=== PATIENT | male | born 1975 | race Caucasian/White ===

== ENCOUNTER 2023-11-17 06:38 | Outpatient (OUT) | payer OTHER, SELFPAY ==
[2023-11-17 06:54] LABS: Basophils Percent Auto 0.6 % (0.2-2.0); Eosinophils Absolute Auto 0.2 10^3/uL (0.0-0.7); Eosinophils Percent Auto 3.6 % (0.9-7.0); Hematocrit 46.6 % (42.0-54.0); Immature Granulocytes Abs Auto 0.02 10^3/uL (0.00-0.03); Immature Granulocytes Pct Auto 0.4 % (0.0-0.5); Lymphocytes Absolute Auto 1.5 10^3/uL (1.2-3.8); Lymphocytes Percent Auto 27.8 % (20.5-60.0); Mean Corpuscular HGB Conc 34.3 g/dL (29.9-35.2); Mean Corpuscular Hemoglobin 31.6 pg (25.9-34.0); Mean Corpuscular Volume 91.9 fL (80.0-94.0); Mean Platelet Volume 10.3 fL (9.5-13.5); Monocytes Absolute Auto 0.7 10^3/uL (0.3-0.8); Monocytes Percent Auto 13.7 % (1.7-12.0); Neutrophils Absolute Auto 2.8 10^3/uL (1.4-6.5); Neutrophils Percent Auto 53.9 % (43.0-75.0); Platelet Count 226 10^3/uL (150-450); Red Blood Count 5.07 10^6/uL (4.70-6.10); Red Cell Distribution Width 11.8 % (11.0-15.0); White Blood Count 5.3 10^3/uL (4.0-11.0)
[2023-11-17 07:13] LABS: Alanine Aminotransferase 35 U/L (16-63); Albumin Globulin Ratio 1.2; Albumin Level 3.9 g/dL (3.4-5.0); Alkaline Phosphatase 71 U/L (46-116); Aspartate Amino Transferase 24 U/L (15-37); Bilirubin Total 1.1 mg/dL (0.2-1.0); Carbon Dioxide 28.4 mmol/L (21.0-32.0); Chloride 103 mmol/L (98-107); Chol HDL Ratio 4.6; Cholesterol 235 mg/dL (<=200); Estimated GFR (African America >60 (>=60); Estimated GFR (Non-African Ame >60 (>=60); Globulin 3.3 g/dL; Glucose 105 mg/dL (74-106); HDL Cholesterol 51 mg/dL (40-60); Potassium 4.4 mmol/L (3.5-5.1); Sodium 139 mmol/L (136-145); Total Protein 7.2 g/dL (6.4-8.2); Triglycerides 100 mg/dL (<=150)
[2023-11-17 07:25] LABS: Prostate Specific Antigen Scrn 0.95 ng/mL (<=4.00)
== END 2023-11-17 06:39 | disposition home or self-care (01) ==
LOC: LAB 06:41
PROVIDERS: PCP Internal Medicine; Visit Provider Internal Medicine
DX: Z00.00 Encounter for general adult medical examination without abnormal findings (principal); E78.5 Hyperlipidemia, unspecified; R53.83 Other fatigue; Z12.5 Encounter for screening for malignant neoplasm of prostate
CPT/HCPCS: 36415; 80053; 80061; 85025; G0103

== ENCOUNTER 2024-02-12 06:55 | Outpatient (OUT) | payer OTHER, SELFPAY ==
--- OUTSIDE RECORDS SUMMARY | 2024-02-12 06:58 | XMS_ITS | CCD ---
Author Organization [facility] Care Team Providers Care Databases Computer Consultant Name Role Phone JAISON CANTOR Admitting Unavailable JAISON CANTOR Attending Unavailable DO Jaison Cantor Primary Care Provider [phone] MD Jonathon Redd Attending Provider Jonathon Redd Attending Unavailable Jonathon Redd Admitting Unavailable Jaison Cantor Primary Care Unavailable Medications Current Medications Medication Drug Class(es) Dates Sig (Normalized) Sig (Original) omeprazole 40 mg delayed release oral capsule (1 source) Proton Pump Inhibitor Start: 01-07-2024 take 40 mg by mouth once daily Omeprazole Active 40 MG PO Daily January 07, 2024 12:00am Problems Problem Classification Problem Date Documented Date Episodic/Chronic Abdominal pain (1 source) Epigastric pain; Translations: [Epigastric pain] 12-11-2023 Episodic Esophageal disorders (4 sources) Gastroesophageal reflux disease; Translations: [Gastro-esophageal reflux disease without esophagitis] 11-12-2023 Chronic Other nutritional; endocrine; and metabolic disorders (2 sources) Obesity; Translations: [Obesity, unspecified] 11-14-2023 Chronic Other nutritional; endocrine; and metabolic disorders (1 source) Obesity, unspecified; Translations: [Obesity, unspecified] 11-14-2023 Chronic Other screening for suspected conditions (not mental disorders or infectious disease) (3 sources) Encounter for screening for malignant neoplasm of colon; Translations: [Special screening for malignant neoplasms of colon] Onset: 01-07-2024 11-14-2023 Episodic Residual codes; unclassified (1 source) Family history of malignant neoplasm of pancreas; Translations: [Family history of malignant neoplasm of digestive organs] 12-11-2023 Episodic Substance-related disorders (3 sources) Nicotine dependence; Translations: [Nicotine dependence, unspecified, uncomplicated] 11-14-2023 Chronic Results Test Name Value Interpretation Reference Range Facil ity Pathology Request for Lab Co rpon 01-07-2024 Pathology Request for Lab Dorian Normal [facility] Comment on above: Order Comment: PATHO LOGY GI SPECIMEN Result Comment: See report. Scanned copy available in EMR. PERFORMED BY: [place] [id number] PATHOLOGIST SEWER INSPECTOR KARINE MCCLOUD M.D. Performed By: #### P ATH TO [facility] #### [address] Basophils Auto (Bld) [#/Vol] on 11-17-2023 Basophils (Bld) [#/Vol] 0.0 10 3/uL 0.0-0.1 [facility] Basophils/100 WBC Auto (Bld) on 11-17-2023 Basophils/100 WBC (Bld) 0.6 % 0.2-2.0 [facility] Cholesterol in LDL Calc [Mas s/Vol]on 11-17-2023 Cholesterol in LDL [Mass/Vol] 164.0 mg/dL [facility] Comment on above: <100 mg/dl [id number] 0-129 mg/dl NEAR OR ABOVE [id number] mg/dl BORDERLINE [id number] mg/dl HIGH>190 mg/dl VERY HIGH Cholesterol in VLDL Calc [Ma ss/Vol]on 11-17-2023 Cholesterol in VLDL [Mass/Vol] 20.0 mg/dL [facility] Eosinophils/100 WBC Auto (Bl d)on 11-17-2023 Eosinophils/100 WBC (Bld) 3.6 % 0.9-7.0 [facility] Erythrocyte distribution wid th Auto (RBC) [Ratio]on 11-17-2023 Erythrocyte distribution width (RBC) [Ratio] 11.8 % 11.0-15.0 [facility] Estimated glomerular filtrat ion rate (GFR) non- Americanon 11-17-2023 GFR/1.73 sq M.predicted among non-blacks MDRD (S/P/Bld) [Vol rate/Area] mL/min/{1.73_m2} >=60 [facility] Globulin Calc (S) [Mass/Vol] on 08-10-2024 Globulin (S) [Mass/Vol] 3.3 g/dL [facility] Hematocrit Auto (Bld) [Volum e fraction]on 11-17-2023 Hematocrit (Bld) [Volume fraction] 46.6 % 42.0-54.0 [facility] Hemoglobin [Mass/volume] in Bloodon 11-17-2023 Hemoglobin (Bld) [Mass/Vol] 16.0 g/dL 14.0-18.0 [facility] Laboratory - Chemistry and C hemistry - challengeon 11-17-2023 Albumin [Mass/Vol] 3.9 g/dL 3.4-5.0 [facility] ALP [Catalytic activity/Vol] 71 U/L 46-116 [facility] ALT [Catalytic activity/Vol] 35 U/L 16-63 [facility] AST [Catalytic activity/Vol] 24 U/L 15-37 [facility] Bilirubin [Mass/Vol] 1.1 mg/dL High 0.2-1.0 [facility] Calcium [Mass/Vol] 9.0 mg/dL 8.5-10.1 [facility] Chloride [Moles/Vol] 103 mmol/L 98-107 [facility] Cholesterol [Mass/Vol] 235 mg/dL High <=200 [facility] Cholesterol in HDL [Mass/Vol] 51 mg/dL 40-60 [facility] Comment on above: > or =60 mg/dl - LOW CARDIOVASCULAR RISK<40 mg/dl - HIGH CARDIOVASCULAR RISK CO2 [Moles/Vol] 28.4 mmol/L 21.0-32.0 [facility] Creatinine [Mass/Vol] 0.95 mg/dL 0.70-1.30 [facility] GFR/1.73 sq M.predicted MDRD (S/P/Bld) [Vol rate/Area] mL/min/{1.73_m2} >=60 [facility] Glucose [Mass/Vol] 105 mg/dL 74-106 [facility] Potassium [Moles/Vol] 4.4 mmol/L 3.5-5.1 [facility] Protein [Mass/Vol] 7.2 g/dL 6.4-8.2 [facility] Sodium [Moles/Vol] 139 mmol/L 136-145 [facility] Triglyceride [Mass/Vol] 100 mg/dL <=150 [facility] Urea nitrogen [Mass/Vol] 19.0 mg/dL High 7.0-18.0 [facility] Urea nitrogen/Creatinine [Mass ratio] 20.0 mg/mg [facility] Laboratory - Hematology and Cell countson 11-17-2023 Immature granulocytes/100 WBC (Bld) 0.4 % 0.0-0.5 [facility] Leukocytes [#/volume] correc karen for nucleated erythrocytes in Blood by Automated counon 11-17-2023 WBC corrected for nucl RBC Auto (Bld) [#/Vol] 5.3 10 3/uL 4.0-11.0 [facility] Lymphocytes Auto (Bld) [#/Vo l]on 11-17-2023 Lymphocytes (Bld) [#/Vol] 1.5 10 3/uL 1.2-3.8 [facility] Lymphocytes/100 WBC Auto (Bl d)on 11-17-2023 Lymphocytes/100 WBC (Bld) 27.8 % 20.5-60.0 [facility] MCH Auto (RBC) [Entitic mass ]on 11-17-2023 MCH (RBC) [Entitic mass] 31.6 pg 25.9-34.0 [facility] MCHC Auto (RBC) [Mass/Vol]on 11-17-2023 MCHC (RBC) [Mass/Vol] 34.3 g/dL 29.9-35.2 [facility] MCV Auto (RBC) [Entitic vol] on 11-17-2023 MCV (RBC) [Entitic vol] 91.9 fL 80.0-94.0 [facility] Monocytes Auto (Bld) [#/Vol] on 11-17-2023 Monocytes (Bld) [#/Vol] 0.7 10 3/uL 0.3-0.8 [facility] Monocytes/100 WBC Auto (Bld) on 11-17-2023 Monocytes/100 WBC (Bld) 13.7 % High 1.7-12.0 [facility] Neutrophils Auto (Bld) [#/Vo l]on 11-17-2023 Neutrophils (Bld) [#/Vol] 2.8 10 3/uL 1.4-6.5 [facility] Neutrophils/100 WBC Auto (Bl d)on 11-17-2023 Neutrophils/100 WBC (Bld) 53.9 % 43.0-75.0 [facility] No Panel Informationon 11-16 Eosinophils # (Auto) 0.2 10 3/uL 0.0-0.7 [facility] Immature Granulocyte # (Auto) 0.02 10 3/uL 0.00-0.03 [facility] Prostate Specific Antigen Screen 0.95 ng/mL <=4.00 [facility] Platelet mean volume Auto (B ld) [Entitic vol]on 11-17-2023 Platelet mean volume (Bld) [Entitic vol] 10.3 fL 9.5-13.5 [facility] Platelets Auto (Bld) [#/Vol] on 11-17-2023 Platelets (Bld) [#/Vol] 226 10 3/uL 150-450 [facility] RBC Auto (Bld) [#/Vol]on RBC (Bld) [#/Vol] 5.07 10 6/uL 4.70-6.10 [facility] Serum or plasma albumin/glob ulin mass ratioon 11-17-2023 Albumin/Globulin [Mass ratio] 1.2 {ratio} [facility] Serum or plasma anion gap de terminationon 11-17-2023 Anion gap [Moles/Vol] 12.0 mmol[facility] Serum or plasma total choles terol/high density lipoprotein (HDL) cholesterol mass philip 11-17-2023 Cholesterol.total/Cho lesterol in HDL [Mass ratio] 4.6 {ratio} [facility] Comment on above: 3.3 - 4.4 LOW RISK4. 4 - 7.1 AVERAGE RISK7.1 - 11.0 MODERATE RISK>11.0 HIGH RISK Vital Signs Date Time Vital Sign Value Performing Clinician Santana eason 01-07-2024 11:44-0400 Diastolic blood pressure 87 mm[Hg] DO Jaison Cantor Work Phone: [facility] 01-07-2024 11:44-0400 Heart rate 63 /min DO Jaison Ball Work Phone: [facility] 01-07-2024 11:44-0400 Respiratory rate 16 /min DO Jaison Ball Work Phone: [facility] 01-07-2024 11:44-0400 SaO2% (BldA) [Mass fraction] 99 % DO Jaison Ball Work Phone: [facility] 01-07-2024 11:44-0400 Systolic blood pressure 127 mm[Hg] DO Jaison Ball Work Phone: [facility] 01-07-2024 10:41-0400 Body height 179.07 cm DO Jaison Ball Work Phone: [facility] 01-07-2024 10:41-0400 Body weight 114.3 kg DO Jaison Ball Work Phone: [facility] 11-14-2023 15:08-0400 Body height 179.07 cm [facility] 11-14-2023 15:08-0400 Body mass index (BMI) [Ratio] 35.8 kg/m2 [facility] 11-14-2023 15:08-0400 Body weight 114.92 kg [facility] 11-14-2023 15:08-0400 Diastolic blood pressure 80 mm[Hg] [facility] 11-14-2023 15:08-0400 Heart rate 74 /min [facility] 11-14-2023 15:08-0400 Respiratory rate 12 /min [facility] 11-14-2023 15:08-0400 Systolic blood pressure 127 mm[Hg] [facility] Encounters Encounter Date Encounter Type Care Provider Facility Start: 01-07-2024 Non-patient / Non-visit DO Jaison Ball Work Phone: [facility] Work Phone: Start: 01-07-2024 End: 01-07-2024 Admission to same day surgery center DO Jaison Ball Work Phone: [facility] Work Phone: Start: 01-07-2024 End: 01-07-2024 ambulatory DO Jaison Cantor Work Phone: [facility] Work Phone: Start: 11-17-2023 Non-patient / Non-visit DO Jaison Cantor Work Phone: [facility] Work Phone: Start: 11-14-2023 End: 11-14-[address] [facility] Work Phone: Start: 11-14-2023 End: 11-14-2023 Encounter for general adult medical examination without abnormal findings [facility] Start: 11-14-2023 End: 11-14-2023 Patient encounter procedure [facility] Work Phone: Start: 05-03-2020 Patient encounter procedure JAISON CANTOR Facility: Procedures Date Procedure Procedure Detail Performing Clinician Start: 01-07-2024 Esophagogastroduodenoscopy DO Jaison Cantor Work Phone: Plan of Treatment Date Care Activity Detail Author Start: 01-07-2024 [facility] Start: 11-14-2023 Patient referral [facility] Work Phone: Comprehensive metabo lic 2000 panel - Serum or Plasma [facility] Patient Education Colon polyps Esophagitis Know your Meds [facility] Work Phone: Patient referral [facility] Work Phone: [facility] Payers Date Payer Category Payer Self-pay 2023 Unknown [id number] 1975 Unknown [id number] Unknown [place] [employer] [id number] Unknown [id number] Social History Date Type Detail Facility Start: 11-14-2023 Tobacco smoking stat [facility] Never smoked tobacco (finding) [facility] Start: 1975 Sex Assigned At Male F [facility] Start: 01-07-2024 Tobacco smoking stat [facility] Ex-smoker (finding) [facility] Goals Date Patient Goal Desired Activity /State Procedure note 01-07-2024 Note Date & Type Note Facility 01-07-2024 Procedure note [facility] Evaluation note Note Date & Type Note Facility Evaluation note Diagnosis Onset Date GERD (gastroesophageal reflux disease) acute Screening for colon cancer n oneactive Wellness examination noneact [facility] Work Phone: Evaluation note Note Date & Type Note Facility Evaluation note Diagnosis Onset Date GERD (gastroesophageal reflux disease) acute Nicotine addiction acute Obesity acute Screening for colon cancer n oneactive Wellness examination noneact [facility] Work Phone: History and physical note Note Date & Type Note Facility History and physical note Note Date/Time January 07, 2024 10:52am [facility] [address] [place] [address] Gastroenterology H&P Signed Patient: Mendoza Pratt MR#: [id number] : 1975 Acct:[id number] Age/Sex: 48 / M Adm Date: 4 Loc: Room: Type: [facility] Attending Dr: Jonathon Redd MD Copies to: DO Jonathon Acosta MD~ Date of Service: 01/07/2024 HISTORY & PHYSICAL: Patient's history with special attention to the cardiovascular, pulmonary systems and the current problem was reviewed with the patient immediately prior to the procedure. Present medications and doses reviewed in the EMR. Allergies and pertinent laboratory tests were also reviewedat this time in the EMR. The physical examination, as below, was then performed. Indication, assessment and HPI: 48-year-old male presents for EGD to evaluate history of GERD, not on controller medication, colorectal cancer screening Family history of GI malignancy? no PHYSICAL EXAMINATION Mouth and Pharynx : moist mucus membranes, normal dentition Cardiac: regular rate, regular rhythm Pulmonary: normal respiratory effort, able to speak in complete sentences Neurological: alert and oriented x3, no focal deficits noted Abdomen: Abdomen soft, non-tender REVIEW OF SYSTEMS Constitutional: Denies malaise, fevers Cardiovascular: Denies chest pain, palpitations Respiratory: Denies shortness of breath, wheezing Gastrointestinal: Per HPI Genitourinary: Denies dysuria, polyuria Musculoskeletal: Denies joint swelling, joint stiffness Neurological: Denies numbness, tingling Integumentary: Denies rashes, skin lesions Endocrine: Denies fatigue, weight loss Written informed consent obtained from the patient. Risks (including but not limited to perforation, infection, bloating, bleeding, need for emergent surgeryand loss of life), benefits and alternatives explained and questions answered. The patient verbalized understanding. Based on history patient is an appropriate candidate for the procedure. Jonathon Redd MD Documented By: Jonathon Redd MD 01/07/24 105 Signed By: <Electronically signed by Jonathon Redd MD> 01/07/24 1051 [facility] Work Phone: Hospital Discharge instructions Note Date & Type Note Facility Hospital Discharge instructions Ambulatory OrdersReferral to Gastroenterology Location: None Selected [facility] Work Phone: Summary Purpose Family History No Family History Records Found Relationship Condition Age at Onset Recorded Date/T fawad mother Malignant neoplasm of pancreas Unknown father Heart disease Unknown Advance Directives No Advanced Directives Records Found Advance Directive Response Recorded Date/ Time Advance Directives No November 13, 2 024 3:00pm Chief Complaint and Reason for Visit Chief Complaint well Reason for Visit GERD (gastroesophage al reflux disease) Screening for colon cancer Wellness examination Chief Complaint well Screening, GERD, epigastric abdominal pain Screening, GERD, epigastric abdominal pain Reason for Visit GERD (gastroesophage al reflux disease) Nicotine addiction Obesity Screening for colon cancer Wellness examination Additional Source Comments (unrecognized sect ion and content) No Status Records FoundNo Status Records Found INFORMATION SOURCE (unrecogn ized section and content) DATE CREATED AUTHOR 05/03/2020 [facility] DATE CREATED AUTHOR 'S ORGANIZ ATION 01/18/2024 [facility] Care Teams (unrecognized sec tion and content) Team Status: Active Member Role Status Dates Jaison Cantor , DO Primary Care Provider Active Team Status: Inactive Member Role Status Dates Jaison Cantor , DO Primary Care Provide r, Attending Provider Active Start: November 14, 2023 End: November 14, 2023 Team Status: Active Member Role Status Dates aJison Cantor , DO Primary Care Provide r, Attending Provider Active Start: November 17, 2023 Team Status: Inactive Member Role Status Dates Jaison Cantor , DO Primary Care Provider Active Start: January 07, 2024 End: January 07, 2024 Jonathon Redd MD Attending Provider Active S tart: January 07, 2024 End: January 07, 2024 Team Status: Active Member Role Status Dates Jaison Cantor , DO Primary Care Provider Active Start: January 07, 2024 Jonathon Redd MD Attending Provider, Other Provider Active Start: January 07, 2024 Goals (unrecognized section and content) Goals may be documented in a n alternate section FOR RECORDS PERTAINING TO PATIENTS WHO ARE OR HAVE BEEN ENROLLED IN A CHEMICAL DEPENDENCY/SUBSTANCEABUSE PROGRAM, SOME INFORMATION MAY BE OMITTED. This clinical summary was aggregated from multiple sources. Caution should be exercised in using it in the provision of clinical care. This summary normalizes information from multiple sources, and as a consequence, information in this document may materially change the coding, format and clinical context of patient data. In addition, data may be omitted in some cases. CLINICAL DECISIONS SHOULD BE BASED ON THE PRIMARY CLINICAL RECORDS. [employer] provides no warranty or guarantee of the accuracy or completeness of information in this document.
--- NOTE | 2024-02-12 07:00 | US_ITS ---
The [address] [address] Patient Name: MARILYN PHELPS MRN: [id number] date: 1975 Sex: M Assigned Patient Location: US Current Patient Location: US Accession/Order Number: [id number] Exam Date: 02/12/2024 07:02 Report Date: 02/12/2024 09:12 At the request of: DIANNE CANTOR Procedure: US right upper quadrant EXAMINATION: US renal BI, US right upper quadrant HISTORY: right side abdominal pain COMPARISON: No relevant comparison available. TECHNIQUE: Ultrasound examination was performed of the bladder. FINDINGS: The visualized pancreas is normal The liver is normal in size and contour measuring 16.5 cm. Diffuse increase in hepatic echotexture. Hepatopedal flow in the main portal vein with a velocity of 21 cm/s. The gallbladder is surgically absent. The common bile duct measures 3.7 mm. The right kidney is normal in size, contour and echotexture measuring 10.6 x 7.0 x 6.9 cm. the cortex measures 1.3 cm. No solid mass or hydronephrosis The right kidney is normal in size, contour and echotexture measuring 11.9 x 6.4 x 5.8 cm. the cortex measures 1.0 cm. No solid mass or hydronephrosis No ascites US/US right upper quadrant IMPRESSION: Echogenic liver suggesting hepatic steatosis Normal appearance of kidneys Electronically authenticated by: ALLYN CAMPBELL Date: 02/12/2024 09:12
--- NOTE | 2024-02-12 07:00 | US_ITS ---
The [address] [address] Patient Name: MARILYN PHELPS MRN: [id number] date: 1975 Sex: M Assigned Patient Location: US Current Patient Location: US Accession/Order Number: [id number] Exam Date: 02/12/2024 07:02 Report Date: 02/12/2024 09:12 At the request of: DIANNE CANTOR Procedure: US renal BI EXAMINATION: US renal BI, US right upper quadrant HISTORY: right side abdominal pain COMPARISON: No relevant comparison available. TECHNIQUE: Ultrasound examination was performed of the bladder. FINDINGS: The visualized pancreas is normal The liver is normal in size and contour measuring 16.5 cm. Diffuse increase in hepatic echotexture. Hepatopedal flow in the main portal vein with a velocity of 21 cm/s. The gallbladder is surgically absent. The common bile duct measures 3.7 mm. The right kidney is normal in size, contour and echotexture measuring 10.6 x 7.0 x 6.9 cm. the cortex measures 1.3 cm. No solid mass or hydronephrosis The right kidney is normal in size, contour and echotexture measuring 11.9 x 6.4 x 5.8 cm. the cortex measures 1.0 cm. No solid mass or hydronephrosis No ascites US/US renal BI IMPRESSION: Echogenic liver suggesting hepatic steatosis Normal appearance of kidneys Electronically authenticated by: ALLYN CAMPBELL Date: 02/12/2024 09:12
== END 2024-02-12 06:56 | disposition home or self-care (01) ==
LOC: US 06:56
PROVIDERS: PCP Internal Medicine; Visit Provider Internal Medicine
DX: R10.9 Unspecified abdominal pain (principal); K20.90 Esophagitis, unspecified without bleeding; Z80.0 Family history of malignant neoplasm of digestive organs
CPT/HCPCS: 76705; 76775

== ENCOUNTER 2024-02-22 13:00 | Outpatient (RCR) | payer OTHER, SELFPAY ==
--- OUTSIDE RECORDS SUMMARY | 2024-02-21 08:08 | XMS_ITS | CCD ---
Author Organization [facility] Care Team Providers Care Automotive Instructor Name Role Phone JAISON CANTOR Admitting Unavailable JAISON CANTOR Attending Unavailable DO Jaison Cantor Primary Care Provider MD Jonathon Redd Attending Provider Jonathon Redd [...] Pathology Request for Lab Dorian Normal [facility] Comment on above: Order Comment: PATHO LOGY GI SPECIMEN Result Comment: See report. Scanned copy available in EMR. PERFORMED BY: [place] [address] PATHOLOGIST PROGRAM AIDE KARINE CMCLOUD M.D. Performed By: #### P ATH TO [facility] #### [address] Basophils Auto (Bld) [#/Vol] on 11-17-2023 Basophils (Bld) [#/Vol] 0.0 10 3/uL 0.0-0.[address] [facility] Basophils/100 WBC Auto (Bld) on 11-17-2023 Basophils/100 WBC (Bld) 0.6 % 0.2-2.[address] [facility] Cholesterol in LDL Calc [Mas s/Vol]on 11-17-2023 Cholesterol in LDL [Mass/Vol] 164.0 mg/dL [facility] Comment on above: <100 mg/dl [id number] 0-129 mg/dl NEAR OR ABOVE [id number] mg/dl BORDERLINE [id number] mg/dl HIGH>190 mg/dl VERY HIGH Cholesterol in VLDL Calc [Ma ss/Vol]on 11-17-2023 Cholesterol in VLDL [Mass/Vol] 20.0 mg/dL [facility] Eosinophils/100 WBC Auto (Bl d)on 11-17-2023 Eosinophils/100 WBC (Bld) 3.6 % 0.9-7.[address] [facility] Erythrocyte distribution wid th Auto (RBC) [Ratio]on 11-17-2023 Erythrocyte distribution width (RBC) [Ratio] 11.8 % 11.0-15.[address] [facility] Estimated glomerular filtrat ion rate (GFR) non- Americanon 11-17-2023 GFR/1.73 sq M.predicted among non-blacks MDRD (S/P/Bld) [Vol rate/Area] mL/min/{1.73_m2} >=[address] [facility] Globulin Calc (S) [Mass/Vol] on 08-10-2024 Globulin (S) [Mass/Vol] 3.3 g/dL [facility] Hematocrit Auto (Bld) [Volum e fraction]on 11-17-2023 Hematocrit (Bld) [Volume fraction] 46.6 % 42.0-54.[address] [facility] Hemoglobin [Mass/volume] in Bloodon 11-17-2023 Hemoglobin (Bld) [Mass/Vol] 16.0 g/dL 14.0-18.[address] [facility] Laboratory - Chemistry and C hemistry - challengeon 11-17-2023 Albumin [Mass/Vol] 3.9 g/dL 3.4-5.0 [facility] ALP [Catalytic activity/Vol] 71 U/L 46-[address] [facility] ALT [Catalytic activity/Vol] 35 U/L 16-[address] [facility] AST [Catalytic activity/Vol] 24 U/L 15-[address] [facility] Bilirubin [Mass/Vol] 1.1 mg/dL High 0.2-1.0 [facility] Calcium [Mass/Vol] 9.0 mg/dL 8.5-10.1 [facility] Chloride [Moles/Vol] 103 mmol/L 98-107 [facility] Cholesterol [Mass/Vol] 235 mg/dL High <=[address] [facility] Cholesterol in HDL [Mass/Vol] 51 mg/dL 40-[address] [facility] Comment on above: > or =60 mg/dl - LOW CARDIOVASCULAR RISK<40 mg/dl - HIGH CARDIOVASCULAR RISK CO2 [Moles/Vol] 28.4 mmol/L 21.0-32.0 [facility] Creatinine [Mass/Vol] 0.95 mg/dL 0.70-1.30 [facility] GFR/1.73 sq M.predicted MDRD (S/P/Bld) [Vol rate/Area] mL/min/{1.73_m2} >=[address] [facility] Glucose [Mass/Vol] 105 mg/dL 74-106 [facility] Potassium [Moles/Vol] 4.4 mmol/L 3.5-5.1 [facility] Protein [Mass/Vol] 7.2 g/dL 6.4-8.2 [facility] Sodium [Moles/Vol] 139 mmol/L 136-145 [facility] Triglyceride [Mass/Vol] 100 mg/dL <=[address] [facility] Urea nitrogen [Mass/Vol] 19.0 mg/dL High 7.0-18.[address] [facility] Urea nitrogen/Creatinine [Mass ratio] 20.0 mg/mg [facility] Laboratory - Hematology and Cell countson 11-17-2023 Immature granulocytes/100 WBC (Bld) 0.4 % 0.0-0.[address] [facility] Leukocytes [#/volume] correc karen for nucleated erythrocytes in Blood by Automated counon 11-17-2023 WBC corrected for nucl RBC Auto (Bld) [#/Vol] 5.3 10 3/uL 4.0-11.[address] [facility] Lymphocytes Auto (Bld) [#/Vo l]on 11-17-2023 Lymphocytes (Bld) [#/Vol] 1.5 10 3/uL 1.2-3.[address] [facility] Lymphocytes/100 WBC Auto (Bl d)on 11-17-2023 Lymphocytes/100 WBC (Bld) 27.8 % 20.5-60.[address] [facility] MCH Auto (RBC) [Entitic mass ]on 11-17-2023 MCH (RBC) [Entitic mass] 31.6 pg 25.9-34.[address] [facility] MCHC Auto (RBC) [Mass/Vol]on 11-17-2023 MCHC (RBC) [Mass/Vol] 34.3 g/dL 29.9-35.2 [facility] MCV Auto (RBC) [Entitic vol] on 11-17-2023 MCV (RBC) [Entitic vol] 91.9 fL 80.0-94.[address] [facility] Monocytes Auto (Bld) [#/Vol] on 11-17-2023 Monocytes (Bld) [#/Vol] 0.7 10 3/uL 0.3-0.[address] [facility] Monocytes/100 WBC Auto (Bld) on 11-17-2023 Monocytes/100 WBC (Bld) 13.7 % High 1.7-12.[address] [facility] Neutrophils Auto (Bld) [#/Vo l]on 11-17-2023 Neutrophils (Bld) [#/Vol] 2.8 10 3/uL 1.4-6.[address] [facility] Neutrophils/100 WBC Auto (Bl d)on 11-17-2023 Neutrophils/100 WBC (Bld) 53.9 % 43.0-75.[address] [facility] No Panel Informationon 11-16 Eosinophils # (Auto) 0.2 10 3/uL 0.0-0.7 [facility] Immature Granulocyte # (Auto) 0.02 10 3/uL 0.00-0.[address] [facility] Prostate Specific Antigen Screen 0.95 ng/mL <=4.[address] [facility] Platelet mean volume Auto (B ld) [Entitic vol]on 11-17-2023 Platelet mean volume (Bld) [Entitic vol] 10.3 fL 9.5-13.[address] [facility] Platelets Auto (Bld) [#/Vol] on 11-17-2023 Platelets (Bld) [#/Vol] 226 10 3/uL 150-[address] [facility] RBC Auto (Bld) [#/Vol]on RBC (Bld) [#/Vol] 5.07 10 6/uL 4.70-6.10 [facility] Serum or plasma albumin/glob ulin mass ratioon 11-17-2023 Albumin/Globulin [Mass ratio] 1.2 {ratio} [facility] Serum or plasma anion gap de terminationon 11-17-2023 Anion gap [Moles/Vol] 12.0 mmol[facility] Serum or plasma total choles terol/high density lipoprotein (HDL) cholesterol mass philip 11-17-2023 Cholesterol.total/Cho lesterol in HDL [Mass ratio] 4.6 {ratio} [facility] Comment on above: 3.3 - 4.4 LOW RISK4. 4 - 7.1 AVERAGE RISK7.1 - 11.0 MODERATE RISK>11.0 HIGH RISK Vital Signs Date Time Vital Sign Value Performing Clinician Santana eason 01-07-2024 11:44-0400 Diastolic blood pressure 87 mm[Hg] DO Jaison Cantor Work Phone: [facility] 01-07-2024 11:44-0400 Heart rate 63 /min DO Jaison Ball Work Phone: [facility] 01-07-2024 11:44-0400 Respiratory rate 16 /min DO Jaison Ball Work Phone: [facility] 01-07-2024 11:44-0400 SaO2% (BldA) [Mass fraction] 99 % DO Jaison Ball Work Phone: [facility] 01-07-2024 11:44-0400 Systolic blood pressure 127 mm[Hg] DO Jaison Ball Work Phone: [facility] 01-07-2024 10:41-0400 Body height 179.07 cm DO Jaison Ball Work Phone: [facility] 01-07-2024 10:41-0400 Body weight 114.3 kg DO Jaison Ball Work Phone: [facility] 11-14-2023 15:08-0400 Body height 179.07 cm [facility] 11-14-2023 15:08-0400 Body mass index (BMI) [Ratio] 35.8 kg/m2 [facility] 11-14-2023 15:08-0400 Body weight 114.92 kg [facility] 11-14-2023 15:08-0400 Diastolic blood pressure 80 mm[Hg] [facility] 11-14-2023 15:08-0400 Heart rate 74 /min [facility] 11-14-2023 15:08-0400 Respiratory rate 12 /min [facility] 11-14-2023 15:08-0400 Systolic blood pressure 127 mm[Hg] [facility] Encounters Encounter Date Encounter Type Care Provider Facility Start: 01-07-2024 Non-patient / Non-visit DO Jaison Ball Work Phone: [facility] Work Phone: Start: 01-07-2024 End: 01-07-2024 Admission to same day surgery center DO Jaison Ball Work Phone: [facility] Work Phone: Start: 01-07-2024 End: 01-07-2024 ambulatory DO Jaison Cantor Work Phone: [facility] Work Phone: Start: 11-17-2023 Non-patient / Non-visit DO Jaiosn Cantor Work Phone: [facility] Work Phone: Start: 11-14-2023 End: 11-14-2023 ambulatory [facility] Work Phone: Start: 11-14-2023 End: 11-14-2023 Encounter for general adult medical examination without abnormal findings [facility] Start: 11-14-2023 End: 11-14-2023 Patient encounter procedure [facility] Work Phone: Start: 05-03-2020 Patient encounter procedure JAISON CANTOR Facility: Procedures Date Procedure Procedure Detail Performing Clinician Start: 01-07-2024 Esophagogastroduodenoscopy DO Jaison Cantor Work Phone: Plan of Treatment Date Care Activity Detail Author Start: 01-07-[address] [facility] Start: 11-14-2023 Patient referral [facility] Work Phone: Comprehensive metabo lic 2000 panel - Serum or Plasma [facility] Patient Education Colon polyps Esophagitis Know your Meds [facility] Work Phone: Patient referral [facility] Work Phone: [facility] Payers Date Payer Category Payer Self-pay 2023 Unknown [id number] 1975 Unknown [id number] [place] [address] [facility] [id number] Unknown [id number] Social History Date Type Detail Facility Start: 11-14-2023 Tobacco smoking stat [facility] Never smoked tobacco (finding) [facility] Start: 1975 Sex Assigned At Male F [facility] Start: 01-07-2024 Tobacco smoking stat [facility] Ex-smoker (finding) [facility] Goals Date Patient Goal Desired Activity /State Procedure note 01-07-2024 Note Date & Type Note Facility 01-07-2024 Procedure note [facility] Evaluation note Note Date & Type Note Facility Evaluation note Diagnosis Onset Date GERD (gastroesophageal reflux disease) acute Screening for colon cancer n [facility]ness examination noneact [facility] Work Phone: Evaluation note Note Date & Type Note Facility Evaluation note Diagnosis Onset Date GERD (gastroesophageal reflux disease) acute Nicotine addiction acute Obesity acute Screening for colon cancer n [facility] Wellness examination noneact [facility] Work Phone: History and physical note Note Date & Type Note Facility History and physical note Note Date/Time January 07, 2024 10:52am [facility] [address] [place] [address] Gastroenterology H&P Signed Patient: Mendoza Pratt MR#: [id number] : 1975 Acct:[id number] Age/Sex: 48 / M Adm Date: 4 Loc: Room: Type: [facility] Attending Dr: Jonathon Redd MD Copies to: [...] 01/07/24 1051 [facility] Work Phone: Hospital Discharge instructions Note Date & Type Note Facility Hospital Discharge instructions Ambulatory OrdersReferral to Gastroenterology Location: None Selected [facility] Work Phone: Summary Purpose Family [...] CREATED AUTHOR 'S ORGANIZ ATION 01/18/2024 [facility] Care Teams (unrecognized sec tion and content) Team Status: Active Member Role Status Dates Jaison Cantor , DO Primary Care Provider Active Team Status: Inactive Member Role Status Dates Jaison Cantor , DO Primary Care Provide r, Attending Provider Active Start: November 14, 2023 End: November 14, 2023 Team Status: Active Member Role Status Dates Jaisno Cantor , DO Primary Care Provide r, [...] BE BASED ON THE PRIMARY CLINICAL RECORDS. [employer] provides no warranty or guarantee of the accuracy or completeness of information in this document.
--- NOTE | 2024-02-22 15:00 | PC.NURSE ---
1430 Arrival ambulatory for [facility] draw per nursing. venipuncture LACF, tolerated well. cotton ball and coban applied. educated on removing coban after 10 mins. verbalized understanding. lab draw packaged and sent to [facility]. 1440 released ambulatory
== END 2024-02-28 09:16 | disposition home or self-care (01) ==
LOC: HEMC 13:00
PROVIDERS: PCP Internal Medicine; Visit Provider Internal Medicine Hematology & Oncology
DX: K20.90 Esophagitis, unspecified without bleeding (principal); K76.0 Fatty (change of) liver, not elsewhere classified; Z90.49 Acquired absence of other specified parts of digestive tract; F10.90 Alcohol use, unspecified, uncomplicated; Z84.81 Family history of carrier of genetic disease; Z80.0 Family history of malignant neoplasm of digestive organs; F17.220 Nicotine dependence, chewing tobacco, uncomplicated
CPT/HCPCS: 36415; G0463

== ENCOUNTER 2024-03-25 07:37 | Outpatient (RCR) | payer OTHER, SELFPAY ==
--- OUTSIDE RECORDS SUMMARY | 2024-03-25 07:40 | XMS_ITS | CCD ---
Author Organization [facility] Care Team Providers Care Building Construction Engineer Name Role Phone JAISON CANTOR Admitting Unavailable JAISON CANTOR Attending Unavailable DO Jaison Cantor Primary Care Provider [phone] MD Jonathon Redd Attending Provider Jonathon Redd Attending Jaison Diaz Primary Care Unavailable Jonathon Redd Admitting Unavailable Jonathon Redd Attending Unavailable Jaison Cantor Primary Care Unavailable Jonathon Redd Admitting Unavailable Medications Current Medications Medication Drug Class(es) [...] Translations: [Epigastric pain] 12-11-2023 Episodic Esophageal disorders (5 sources) Gastroesophageal reflux disease; Translations: [Gastro-esophageal reflux disease without esophagitis] Onset: 03-11-2024 11-12-2023 Chronic Other nutritional; endocrine; and metabolic [...] Pathology Request for Lab Dorian Normal [facility] Comment on above: Order Comment: PATHO LOGY GI SPECIMEN Result Comment: See report. Scanned copy available in EMR. PERFORMED BY: [place] [address] PATHOLOGIST VOUCHER EXAMINER KARINE MCCLOUD M.D. Performed By: #### P ATH TO [facility] #### [address] Basophils Auto (Bld) [#/Vol] on 11-17-2023 Basophils (Bld) [#/Vol] 0.0 10 3/uL 0.0-0.1 [facility] Basophils/100 WBC Auto (Bld) on 11-17-2023 Basophils/100 WBC (Bld) 0.6 % 0.2-2.0 [facility] Cholesterol in LDL Calc [Mas s/Vol]on 11-17-2023 Cholesterol in LDL [Mass/Vol] 164.0 mg/dL [facility] Comment on above: <100 mg/dl NHOLFLC27 0-129 mg/dl NEAR OR ABOVE LKEITWJ241-143 mg/dl BORDERLINE ISXU057-179 mg/dl HIGH>190 mg/dl VERY HIGH Cholesterol in VLDL Calc [Ma ss/Vol]on 11-17-2023 Cholesterol in VLDL [Mass/Vol] 20.0 mg/dL [facility] Eosinophils/100 WBC Auto (Bl d)on 11-17-2023 Eosinophils/100 WBC (Bld) 3.6 % 0.9-7.0 [facility] Erythrocyte distribution wid th Auto (RBC) [Ratio]on 11-17-2023 Erythrocyte distribution width (RBC) [Ratio] 11.8 % 11.0-15.0 [facility] Estimated glomerular filtrat ion rate (GFR) non- Americanon 11-17-2023 GFR/1.73 sq M.predicted among non-blacks MDRD (S/P/Bld) [Vol rate/Area] mL/min/{1.73_m2} >=60 [facility] Globulin Calc (S) [Mass/Vol] on 11-17-2023 Globulin (S) [Mass/Vol] 3.3 g/dL [facility] Hematocrit Auto (Bld) [Volum e fraction]on 11-17-2023 Hematocrit (Bld) [Volume fraction] 46.6 % 42.0-54.0 [facility] Hemoglobin [Mass/volume] in Bloodon 11-17-2023 Hemoglobin (Bld) [Mass/Vol] 16.0 g/dL 14.0-18.0 [facility] Laboratory - Chemistry and C hemistry - challengeon 11-17-2023 Albumin [Mass/Vol] 3.9 g/dL 3.4-5.0 [facility] ALP [Catalytic activity/Vol] 71 U/L 46-116 [facility] ALT [Catalytic activity/Vol] 35 U/L 16-63 [facility] AST [Catalytic activity/Vol] 24 U/L 15-37 [facility] Bilirubin [Mass/Vol] 1.1 mg/dL High 0.2-1.0 [facility] Calcium [Mass/Vol] 9.0 mg/dL 8.5-10.1 [facility] Chloride [Moles/Vol] 103 mmol/L 98-107 [facility] Cholesterol [Mass/Vol] 235 mg/dL High <=200 [facility] Cholesterol in HDL [Mass/Vol] 51 mg/dL 40-60 [facility] Comment on above: > or =60 mg/dl - LOW CARDIOVASCULAR RISK<40 mg/dl - HIGH CARDIOVASCULAR RISK CO2 [Moles/Vol] 28.4 mmol/L 21.0-32.0 [facility] Creatinine [Mass/Vol] 0.95 mg/dL 0.70-1.30 [facility] GFR/1.73 sq M.predicted MDRD (S/P/Bld) [Vol rate/Area] mL/min/{1.73_m2} >=60 [facility] Glucose [Mass/Vol] 105 mg/dL 74-106 [facility] Potassium [Moles/Vol] 4.4 mmol/L 3.5-5.1 [facility] Protein [Mass/Vol] 7.2 g/dL 6.4-8.2 [facility] Sodium [Moles/Vol] 139 mmol/L 136-145 [facility] Triglyceride [Mass/Vol] 100 mg/dL <=150 [facility] Urea nitrogen [Mass/Vol] 19.0 mg/dL High 7.0-18.0 [facility] Urea nitrogen/Creatinine [Mass ratio] 20.0 mg/mg [facility] Laboratory - Hematology and Cell countson 11-17-2023 Immature granulocytes/100 WBC (Bld) 0.4 % 0.0-0.5 [facility] Leukocytes [#/volume] correc karen for nucleated erythrocytes in Blood by Automated counon 11-17-2023 WBC corrected for nucl RBC Auto (Bld) [#/Vol] 5.3 10 3/uL 4.0-11.0 [facility] Lymphocytes Auto (Bld) [#/Vo l]on 11-17-2023 Lymphocytes (Bld) [#/Vol] 1.5 10 3/uL 1.2-3.8 [facility] Lymphocytes/100 WBC Auto (Bl d)on 11-17-2023 Lymphocytes/100 WBC (Bld) 27.8 % 20.5-60.0 [facility] MCH Auto (RBC) [Entitic mass ]on 11-17-2023 MCH (RBC) [Entitic mass] 31.6 pg 25.9-34.0 [facility] MCHC Auto (RBC) [Mass/Vol]on 11-17-2023 MCHC (RBC) [Mass/Vol] 34.3 g/dL 29.9-35.2 [facility] MCV Auto (RBC) [Entitic vol] on 11-17-2023 MCV (RBC) [Entitic vol] 91.9 fL 80.0-94.0 [facility] Monocytes Auto (Bld) [#/Vol] on 11-17-2023 Monocytes (Bld) [#/Vol] 0.7 10 3/uL 0.3-0.8 [facility] Monocytes/100 WBC Auto (Bld) on 08-10-2024 Monocytes/100 WBC (Bld) 13.7 % High 1.7-12.0 [facility] Neutrophils Auto (Bld) [#/Vo l]on 11-17-2023 Neutrophils (Bld) [#/Vol] 2.8 10 3/uL 1.4-6.5 [facility] Neutrophils/100 WBC Auto (Bl d)on 11-17-2023 Neutrophils/100 WBC (Bld) 53.9 % 43.0-75.0 [facility] No Panel Informationon 11-16 Eosinophils # (Auto) 0.2 10 3/uL 0.0-0.7 [facility] Immature Granulocyte # (Auto) 0.02 10 3/uL 0.00-0.03 [facility] Prostate Specific Antigen Screen 0.95 ng/mL <=4.00 [facility] Platelet mean volume Auto (B ld) [Entitic vol]on 11-17-2023 Platelet mean volume (Bld) [Entitic vol] 10.3 fL 9.5-13.5 [facility] Platelets Auto (Bld) [#/Vol] on 11-17-2023 Platelets (Bld) [#/Vol] 226 10 3/uL 150-450 [facility] RBC Auto (Bld) [#/Vol]on RBC (Bld) [#/Vol] 5.07 10 6/uL 4.70-6.10 [facility] Serum or plasma albumin/glob ulin mass ratioon 11-17-2023 Albumin/Globulin [Mass ratio] 1.2 {ratio} [facility] Serum or plasma anion gap de terminationon 11-17-2023 Anion gap [Moles/Vol] 12.0 mmol/L [facility] Serum or plasma total choles terol/high density lipoprotein (HDL) cholesterol mass philip 11-17-2023 Cholesterol.total/Cho lesterol in HDL [Mass ratio] 4.6 {ratio} [facility] Comment on above: 3.3 - 4.4 LOW RISK4. 4 - 7.1 AVERAGE RISK7.1 - 11.0 MODERATE RISK>11.0 HIGH RISK Vital Signs Date Time Vital Sign Value Performing Clinician Faci lity 01-07-2024 11:44-0400 Diastolic blood pressure 87 mm[Hg] DO Jaison Ball Work Phone: [facility] 01-07-2024 11:44-0400 Heart rate 63 /min DO Jaison Ball Work Phone: [facility] 01-07-2024 11:44-0400 Respiratory rate 16 /min DO Jaison Ball Work Phone: [facility] 01-07-2024 11:44-0400 SaO2% (BldA) [Mass fraction] 99 % DO Jaison Ball Work Phone: [facility] 01-07-2024 11:44-0400 Systolic blood pressure 127 mm[Hg] DO Jaison Ball Work Phone: [facility] 01-07-2024 10:41-0400 Body height 179.07 cm DO Jaison Ball Work Phone: [facility] 01-07-2024 10:41-0400 Body weight 114.3 kg DO Jaison Ball Work Phone: [facility] 11-14-2023 15:08-0400 Body height 179.07 cm [facility] 11-14-2023 15:08-0400 Body mass index (BMI) [Ratio] 35.8 kg/m2 [facility] 11-14-2023 15:08-0400 Body weight 114.92 kg [facility] 11-14-2023 15:08-0400 Diastolic blood pressure 80 mm[Hg] [facility] 11-14-2023 15:08-0400 Heart rate 74 /min [facility] 11-14-2023 15:08-0400 Respiratory rate 12 /min [facility] 11-14-2023 15:08-0400 Systolic blood pressure 127 mm[Hg] [facility] Encounters Encounter Date Encounter Type Care Provider Facility Start: 03-11-2024 End: 03-11-2024 ambulatory Jonathon Redd Facility:[facility] Start: 01-07-2024 Non-patient / Non-visit DO Jaison Ball Work Phone: [facility] Work Phone: Start: 01-07-2024 End: 01-07-2024 Admission to same day surgery center DO Jaison Cantor Work Phone: [facility] Work Phone: Start: 01-07-2024 End: 01-07-2024 ambulatory DO Jaison Cantor Work Phone: [facility] Work Phone: Start: 11-17-2023 Non-patient / Non-visit DO Jaison Cantor Work Phone: [facility] Work Phone: Start: 11-14-2023 End: 11-14-2023 ambulatory [facility] Work Phone: Start: 11-14-2023 End: 11-14-2023 Encounter for general adult medical examination without abnormal findings [facility] Start: 11-14-2023 End: 11-14-2023 Patient encounter procedure [facility] Work Phone: Start: 05-03-2020 Patient encounter procedure JAISON CANTOR Facility: Procedures Date Procedure Procedure Detail Performing Clinician Start: 01-07-2024 Esophagogastroduodenoscopy DO Jaison Cantor Work Phone: Plan of Treatment Date Care Activity Detail Author Start: 01-07-2024 [facility] Start: 11-14-2023 Patient referral [facility] Work Phone: Comprehensive metabo lic 2000 panel - Serum or Plasma [facility] Patient Education Colon polyps Esophagitis Know your Meds [facility] Work Phone: Patient referral [facility] Work Phone: [facility] Payers Date Payer Category Payer Self-pay 2023 Unknown [id number] 1975 Unknown [id number] Unknown Carine Thomas [facility] [id number] Unknown [id number] Unknown [id number] Social History Date Type Detail Facility Start: 11-14-2023 Tobacco smoking stat [facility] Never smoked tobacco (finding) [facility] Start: 1975 Sex Assigned At Male F [facility] Start: 01-07-2024 Tobacco smoking stat [facility] Ex-smoker (finding) [facility] Goals Date Patient Goal Desired Activity /State Procedure note 01-07-2024 Note Date & Type Note Facility 01-07-2024 Procedure note [facility] Evaluation note Note Date & Type Note Facility Evaluation note Diagnosis Onset Date GERD (gastroesophageal reflux disease) acute Screening for colon cancer n oneactive Wellness examination noneact [facility] Work Phone: Evaluation note Note Date & Type Note Facility Evaluation note Diagnosis Onset Date GERD (gastroesophageal reflux disease) acute Nicotine addiction acute Obesity acute Screening for colon cancer n oneactive Wellness examination noneact [facility] Work Phone: History and physical note Note Date & Type Note Facility History and physical note Note Date/Time January 07, 2024 10:52am [facility] [address] [place] [address] Gastroenterology H&P Signed Patient: Mendoza Pratt MR#: [id number] : 1975 Acct:[id number] Age/Sex: 48 / M Adm Date: 4 Loc: Room: Type: [facility] Attending Dr: Jonathon Redd MD Copies [...] signed by Jonathon Redd MD> 01/07/24 1051 [facility] Work Phone: Hospital Discharge instructions Note Date & Type Note Facility Hospital Discharge instructions Ambulatory OrdersReferral to Gastroenterology Location: None Selected [facility] Work Phone: Summary Purpose Family History No [...] content) DATE CREATED AUTHOR 05/03/2020 [facility] kaurindio DATE CREATED AUTHOR MARCELLA CUMMINGS 03/21/2024 [facility] Care Teams (unrecognized sec tion and content) Team Status: Active Member Role Status Dates Jaison Cantor DO Primary Care Provider Active Team Status: Inactive Member Role Status Dates Jaison Cantor DO Primary Care Provide r, Attending Provider Active Start: November 14, 2023 End: November 14, 2023 Team Status: Active Member Role Status Dates aJison Cantor DO Primary Care Provide r, Attending Provider Active Start: November 17, 2023 Team Status: Inactive Member Role Status Dates Jaison Cantor DO Primary Care Provider Active Start: January 07, 2024 End: January 07, 2024 Jonathon Redd MD Attending Provider Active S tart: January 07, 2024 End: January 07, 2024 Team Status: Active Member Role Status Dates Jaison Cantor DO Primary Care Provider Active Start: January [...] BE BASED ON THE PRIMARY CLINICAL RECORDS. [employer] [facility]. provides no warranty or guarantee of the accuracy or completeness of information in this document.
== END 2024-03-26 08:20 | disposition home or self-care (01) ==
LOC: HEMC 07:37
PROVIDERS: PCP Internal Medicine; Visit Provider Internal Medicine Hematology & Oncology
DX: K20.90 Esophagitis, unspecified without bleeding (principal); K76.0 Fatty (change of) liver, not elsewhere classified; F10.90 Alcohol use, unspecified, uncomplicated; Z90.49 Acquired absence of other specified parts of digestive tract; K82.8 Other specified diseases of gallbladder; F17.220 Nicotine dependence, chewing tobacco, uncomplicated; Z80.52 Family history of malignant neoplasm of bladder; Z80.3 Family history of malignant neoplasm of breast; Z80.51 Family history of malignant neoplasm of kidney; Z84.81 Family history of carrier of genetic disease; Z80.0 Family history of malignant neoplasm of digestive organs
CPT/HCPCS: G0463

== ENCOUNTER 2024-12-23 07:52 | Outpatient (RCR) | payer OTHER, SELFPAY ==
[2024-12-23 08:14] LABS: Hematocrit 43.4 % (42.0-54.0); Hemoglobin 15.6 g/dL (14.0-18.0); Immature Granulocytes Abs Auto 0.02 10^3/uL (0.00-0.03); Immature Granulocytes Pct Auto 0.4 % (0.0-0.5); Lymphocytes Absolute Auto 1.5 10^3/uL (1.2-3.8); Mean Corpuscular HGB Conc 35.9 g/dL (29.9-35.2); Mean Corpuscular Hemoglobin 32.2 pg (25.9-34.0); Mean Corpuscular Volume 89.7 fL (80.0-94.0); Platelet Count 211 10^3/uL (150-450); Red Blood Count 4.84 10^6/uL (4.70-6.10); White Blood Count 5.2 10^3/uL (4.0-11.0)
[2024-12-23 08:36] LABS: Alanine Aminotransferase 38 U/L (16-63); Albumin Globulin Ratio 1.1; Albumin Level 3.7 g/dL (3.4-5.0); Alkaline Phosphatase 66 U/L (46-116); Amylase 45 U/L (25-115); Anion Gap 11.9; Aspartate Amino Transferase 23 U/L (15-37); Blood Urea Nitrogen 15.0 mg/dL (7.0-18.0); Calcium 8.6 mg/dL (8.5-10.1); Carbon Dioxide 27.4 mmol/L (21.0-32.0); Chloride 107 mmol/L (98-107); Estimated GFR (African America >60 (>=60 mL/min/1.73m^2); Estimated GFR (Non-African Ame >60 (>=60 mL/min/1.73m^2); Globulin 3.3 g/dL; Glucose 106 mg/dL (74-106); Lipase 40.0 U/L (16.0-77.0); Potassium 4.3 mmol/L (3.5-5.1); Sodium 142 mmol/L (136-145); Total Protein 7.0 g/dL (6.4-8.2)
== END 2025-01-06 23:59 | disposition home or self-care (01) ==
LOC: HEMC 07:52
PROVIDERS: PCP Internal Medicine; Visit Provider Internal Medicine Hematology & Oncology
DX: K20.90 Esophagitis, unspecified without bleeding (principal); Z80.0 Family history of malignant neoplasm of digestive organs; Z84.81 Family history of carrier of genetic disease; K76.0 Fatty (change of) liver, not elsewhere classified; F17.220 Nicotine dependence, chewing tobacco, uncomplicated; F10.90 Alcohol use, unspecified, uncomplicated; Z80.3 Family history of malignant neoplasm of breast; Z80.51 Family history of malignant neoplasm of kidney; Z80.52 Family history of malignant neoplasm of bladder; Z90.49 Acquired absence of other specified parts of digestive tract
CPT/HCPCS: 36415; 80053; 82150; 83690; 85025; G0463

== ENCOUNTER 2025-02-12 06:59 | Outpatient (OUT) | payer OTHER, SELFPAY ==
--- OUTSIDE RECORDS SUMMARY | 2024-02-21 09:15 | XMS_ITS ---
Author Organization [facility] [place] Address [address] [place] [address] Care Team Providers Care Armament Repairer Name Role Phone Jaison Morton DO Primary Care Provider Unavaila Belkis Guerra Unavailable [phone] REASON FOR VISIT New PT Onc Encounters Encounter Location Date Provider Diagnosis [facility] [address] [place] [address] 02/21/2024 Belkis Marie Plan Of Treatment Next Appt Details Provider Name:BELKIS MARIE , 03/24/2025 03:45:00 PM, [address] [place], [address], Progress Notes * MATTIEMARILYN EDOB:1975 (49 yo M)Acc No.[id number]:02/21/2024 UNLOCKED PROGRESS NOTE Progress Notes Patient: MARILYN LIN :?Belkis Marie M.D.:1975???Age:48 Y ???Sex:MaleDate:4Phone:[phone]:[address], [place]-[address]Pcp:Jaison Morton DO Subjective: * Chief Complaints: * 1 . New PT Onc. * Medical History: Objective: * Vitals: Assessment: Plan: * Treatment: * * Electronic signature of Belkis Marie MD, [id number] on 02/12/2025 at 07:01 AM ESTSign off status: PendingVisit Status:?PEN (Pending) * Provider: Kaitlyn Marie M.D. Date: 04/22/2023 Generated for Printing/Faxing/eTransmitting on:?02/12/2025 07:01 AM EST
--- OUTSIDE RECORDS SUMMARY | 2024-03-20 03:30 | XMS_ITS ---
Author Organization [facility] in [place] Address [address] [place] [address] Care Team Providers Care Framing Mill Operator Name Role Phone Jaison Morton DO Primary Care Provider Unavaila Belkis Guerra [phone] REASON FOR VISIT MD Encounters Encounter Location Date Provider Diagnosis [facility] [address] [place] [address] 03/20/2024 Belkis Marie Plan Of Treatment Next Appt Details Provider Name:BELKIS MARIE , 03/24/2025 03:45:00 PM, [address] [place], [address], Progress Notes * MARILYN PHELPS EDOB:1975 (49 yo M)Acc No.[id number]:03/20/2024 UNLOCKED PROGRESS NOTE Progress Notes Patient: MARILYN LIN :?Belkis Marie M.D.:1975???Age:48 Y ???Sex:MaleDate:4Phone:[phone]:[address], [place]Pcp:Jaison Morton DO Subjective: * Chief Complaints: * 1 . MD. * Medical History: Objective: * Vitals: Assessment: Plan: * Treatment: * * Electronic signature of Belkis Marie MD, [id number] on 02/12/2025 at 07:01 AM ESTSign off status: PendingVisit Status:?CANC (Cancelled) * Provider: Kaitlyn Marie M.D. Date: 05/21/2023 Generated for Printing/Faxing/eTransmitting on:?02/12/2025 07:01 AM EST
--- OUTSIDE RECORDS SUMMARY | 2024-03-25 06:00 | XMS_ITS ---
Author Organization [facility] in [place] Address [address] [place] [address] Care Team Providers Care First Line Production Supervisor Name Role Phone Jaison Morton DO Primary Care Provider Unavaila Belkis Guerra Unavailable [phone] REASON FOR VISIT MD Encounters Encounter Location Date Provider Diagnosis [facility] [address] [place] [address] 03/25/2024 Belkis Marie Plan Of Treatment Next Appt Details Provider Name:BELKIS MARIE , 03/24/2025 03:45:00 PM, [address] [place], [address], Progress Notes * MARILYN PHELPS EDOB:1975 (49 yo M)Acc No.[id number]:03/25/2024 UNLOCKED PROGRESS NOTE Progress Notes Patient: MARILYN LIN :?Belkis Marie M.D.:1975???Age:48 Y ???Sex:MaleDate:4Phone:[phone]:[address] [place], [place]Pcp:Jaison Morton DO Subjective: * Chief Complaints: * 1 . MD. * Medical History: Objective: * Vitals: Assessment: Plan: * Treatment: * * Electronic signature of Belkis Marie MD, [id number] on 02/12/2025 at 07:01 AM ESTSign off status: PendingVisit Status:?CONFPHONE (Voice) * Provider: Katilyn Marie M.D. Date: 05/26/2023 Generated for Printing/Faxing/eTransmitting on:?02/12/2025 07:01 AM EST
--- OUTSIDE RECORDS SUMMARY | 2024-12-23 03:30 | XMS_ITS ---
Author Organization The [facility] in [place] Address [address] [facility] [place] [address] Care Team Providers Care Chief Port Director Name Role Phone Jaison Morton DO Primary Care Provider Unavaila Belkis Guerra Unavailable [phone] REASON FOR VISIT MD Encounters Encounter Location Date Provider Diagnosis [facility] Oncology [address] [place] [address] 12/23/2024 Belkis Marie Plan Of Treatment Next Appt Details Provider Name:BELKIS MARIE , 03/24/2025 03:45:00 PM, [address] [place], [address], Progress Notes * MARILYN PHELPS EDOB:1975 (49 yo M)Acc No.[id number]:12/23/2024 UNLOCKED PROGRESS NOTE Progress Notes Patient: MARILYN LIN :?Belkis Marie M.D.:1975???Age:49 Y ???Sex:MaleDate:12/23/2024Phone:[phone]:[address] [place], [place]-[address]Pcp:Jaison Morton DO Subjective: * Chief Complaints: * 1 . MD. * Medical History: Objective: * Vitals: Assessment: Plan: * Treatment: * * Electronic signature of Belkis Marie MD, [id number] on 02/12/2025 at 07:01 AM ESTSign off status: PendingVisit Status:?PEN (Pending) * Provider: Kaitlyn Marie M.D. Date: 0 12/23/2024 Generated for Printing/Faxing/eTransmitting on:?02/12/2025 07:01 AM EST
--- NOTE | 2025-02-12 | US_ITS ---
The [address] [address] Patient Name: MARILYN PHELPS MRN: [id number] date: 1975 Sex: M Assigned Patient Location: US Current Patient Location: [place] Accession/Order Number: [id number] Exam Date: 02/12/2025 07:01 Report Date: 02/12/2025 10:13 At the request of: ROCKY GRAVES MD Procedure: US right upper quadrant LIMITED RIGHT UPPER QUADRANT ABDOMINAL ULTRASOUND CLINICAL HISTORY: Right upper quadrant pain and elevated liver functions. Prior cholecystectomy COMPARISON: 02/12/2024 The gallbladder is surgically absent. No intra- or extrahepatic biliary dilatation is evident. The common duct measures 3-4 mm. The liver shows coarsened slight increased echogenicity that might be fatty infiltration. No focal intrahepatic masses are seen. There is appropriate hepatopetal flow within the main portal vein. The pancreas shows no significant sonographic abnormality. Evaluation of the right kidney reveals no hydronephrosis or fluid within Oliveira's pouch. US/US right upper quadrant IMPRESSION: POSSIBLE FATTY LIVER. NO OTHER RIGHT UPPER QUADRANT ABNORMALITIES. Impression dictated by: Patricia Zeng M.D. 02/12/2025 10:13 AM Dictation Location: [place] [address] Electronically authenticated by: [id number] Y Date: 02/12/2025 10:13
--- OUTSIDE RECORDS SUMMARY | 2025-02-12 07:01 | XMS_ITS | Clinical Summary ---
Author Organization The [facility] Address [address] [place] [address] Care Team Providers Care Cpr Ambulance Driver Name Role Phone Belkis Marie MD Unavailable Encounters DateTypeDepartmentCare IlwgZwpkqxcmhso70/19/2025Telephone [facility] Endoscopy [address] [place] [address] Alka Clinton RN from Last 3 Months Social History Tobacco UseTypesPacks/DayYears UsedDateSmoking Tobacco: Never AssessedSex and Gender InformationValueDate RecordedSex Assigned at BirthNot on fileLegal Sex Male12/23/2024 2:56 PM EDTGender IdentityNot on fileSexual OrientationNot on file Plan of Treatment DateTypeDepartmentCare Team (Latest Contact Info)Sgsjzsrlnue75/21/2025 8:45 AM ESTAppointment [facility] [address] [place] [address] Sg Soler MD [address] [facility] [address] [facility] [place] [address] Health MaintenanceDue DateLast DoneCommentsCT Vacyfxnksxgc11/11/1975Colonoscopy 1975Colorectal Cancer Wkhbiebga69/11/1975FIT-DNA1974FIT1975 FOBT1975 1876Jwkmwvcnbjjjh08/11/1975Depression Hmqqnouxn21/11/1987Hepatitis B Vaccines (1 of 3 - 19+ 3-dose series)1993Adult Izvpkee5606/17/1996Zoster Vaccines (1 of 2)2024Influenza Vaccine (#1)2024HIB VaccinesAged Out No longer eligible based on patient's age to complete this topicHPV VaccinesAged OutNo longer eligible based on patient's age to complete this topicIPV Vaccines Aged OutNo longer eligible based on patient's age to complete this topic Meningococcal B VaccineAged OutNo longer eligible based on patient's age to complete this topicMeningococcal VaccineAged OutNo longer eligible based on patient's age to complete this topicPneumococcal Vaccine: Pediatrics (0 to 5 Years) and At-Risk Patients (6 to 64 Years)Aged OutNo longer eligible based on patient's age to complete this topicRotavirus VaccinesAged OutNo longer eligible based on patient's age to complete this topic Insurance Care Teams Team MemberRelationshipSpecialtyStart DateEnd Date Belkis Marie MD [address] [place] [address] Consulting PhysicianOncology01/06/25
--- OUTSIDE RECORDS SUMMARY | 2025-02-12 07:01 | XMS_ITS | Patient Health Record ---
Author Organization The [facility] in [place] Address [address] [place] [address] Care Team Providers Care Second Rigger Name Role Phone Jaison Morton DO Primary Care Provider Jodya Belkis Guerra Unavailable [phone] Results Component Value Reference Range Notes PROF 14(COMP METB) (Not yet reviewed by provider) Interpretation: Performing Lab: Notes/Report: [facility] , Sodium 142 136-145 mmol/L Potassium4.33.5-5.1 mmol/IAnvtdlot24555-525 mmol/LCarbon Nybauqx33.421.0-32.0 mmol/LAnion Gap11.9Qkgzzei36785-981 mg/dLBlood Urea Vysqfudx65.07.0-18.0 mg/dL Creatinine0.860.70-1.30 mg/dLEstimated GFR ( Nicole>60>=60 mL/min/1.73m 2Estimated GFR (Non- Augustina>60>=60 mL/min/1.73m 2BUN Creatinine Ratio17.4 Calcium8.68.5-10.1 mg/dLBilirubin Total0.80.2-1.0 mg/dLAspartate Amino Crvlsacipug4550-88 U/LAlanine Vphcyiocwlwrrncr1287-69 U/LAlkaline Hysetzgnbrs72 46-116 U/LTotal Protein7.06.4-8.2 g/dLAlbumin Level3.73.4-5.0 g/dLGlobulin3.3 Albumin Globulin Ratio1.1Performing Lab:see noteML - [facility] LB LIPASE (Not yet reviewed by provider) Interpretation: Performing Lab: Notes/Report: [facility] ,Qaegzg42.016.0-77.0 U/LPerforming Lab:see noteML - [facility] LB AMYLASE (Not yet reviewed by provider) Interpretation: Performing Lab: Notes/Report: [facility] ,Cmsaprv3508-273 U/LPerforming Lab:see noteML - [facility] LBCBC AUTO DIFF (Not yet reviewed by provider) Interpretation: Performing Lab: Notes/Report: [facility] ,White Blood Count5.24.0-11.0 10 3/uLRed Blood Count4.844.70-6.10 10 6/uL Qgbdeyrkyn74.614.0-18.0 g/gODnzcrczkye16.442.0-54.0 %Mean Corpuscular Wsiqii61.7 80.0-94.0 fLMean Corpuscular Slimzoczva28.225.9-34.0 pgMean Corpuscular HGB Conc 35.929.9-35.2 g/dLRed Cell Distribution Width11.411.0-15.0 %Platelet Frqvm110 150-450 10 3/uLMean Platelet Hrxuun44.29.5-13.5 fLNeutrophils Percent Auto53.5 43.0-75.0 %Lymphocytes Percent Auto29.520.5-60.0 %Monocytes Percent Auto13.11.7- 12.0 %Eosinophils Percent Auto2.70.9-7.0 %Basophils Percent Auto0.80.2-2.0 % Immature Granulocytes Pct Auto0.40.0-0.5 %Neutrophils Absolute Auto2.81.4-6.5 10 3/uLLymphocytes Absolute Auto1.51.2-3.8 10 3/uLMonocytes Absolute Auto0.70.3-0.8 10 3/uLEosinophils Absolute Auto0.10.0-0.7 10 3/uLBasophils Absolute Auto0.00.0- 0.1 10 3/uLImmature Granulocytes Abs Auto0.020.00-0.03 10 3/uLPerforming Lab:see noteML - [facility] LB Reason For Referral No Information Encounters Encounter Location Date Provider Diagnosis [facility] Oncology [address] [place] [address] 02/21/2024 Belkis Marie [facility] [address] [place] [address]/ [facility] [address] [place] [address]/daniela Marie Plan Of Treatment Pending Test Test Name Order Date AMYLASE 12/23/2024 CBC AUTO DIFF 12/23/2024 LIPASE 12/23/2024 PROF 14(COMP METB) 12/23/2024 Next Appt Details Provider Name:BELKIS MARIE , 03/24/2025 03:45:00 PM, [address] [place], [address], Insurance Providers Payer Name Payer Address Payer Phone Subscriber Number Group Number Insured Name Patient Relationship to Insured Coverage Start Date Coverage End Date MAGO PEREZ [address] ATTN CLAIMS [place], [place] [id number] MARILYN PHELPS Self - patient is the insured
--- OUTSIDE RECORDS SUMMARY | 2025-02-12 07:01 | XMS_ITS | CCD ---
Author Organization [facility] [place] [facility] Care Team Providers Care Geophysical Laboratory Supervisor Name Role Phone JAISON CANTOR Admitting Unavailable JAISON CANTOR Attending Unavailable DO Jaison Cantor Primary Care Provider MD Jonathon Redd Attending Provider Jonathon Redd Attending Unavailable Jaison Cantor Primary Care Unavailable Jonathon Redd Admitting Unavailable Jonathon Redd Attending Unavailable Jaison Cantor Primary Care Unavailable Jonathon Redd Admitting Unavailable Barbara AMARAL Attending Unavailable Medications Current Medications MedicationDrug Class(es)DatesSig (Normalized)Sig (Original)omeprazole 40 mg delayed release oral capsule (4 sources)Proton Pump InhibitorStart: 06-26-2024 End: 06-96-3606ucpd 1 capsule by mouth twice dailyOmeprazole 40 mg capsule,delayed release(DR/EC) Active 40 MG PO Twice daily 60 June 26, 2024 9:10amStart: 01-07-2024 End: 66-44-8590szrk 1 capsule by mouth once dailyOmeprazole 40 mg capsule,delayed release(DR/EC) Discontinued 40 MG PO Daily January 062:00am June 26, 2024 9:09am Problems Active Problems Problem ClassificationProblemDateDocumented DateEpisodic/ChronicAbdominal pain (3 sources)Epigastric pain; Translations: [Epigastric pain]02-94-3132Czxjhgeh Alcohol-related disorders (1 source)Alcohol abuse; Translations: [Alcohol abuse, uncomplicated]02-05-2024 ChronicEsophageal disorders (8 sources)Gastroesophageal reflux disease; Translations: [Gastro-esophageal reflux disease without esophagitis]Onset: 142475-92-1694TpngjwhDchffmenuz disorders (2 sources)Esophagitis; Translations: [Esophagitis]62-35-7259ElkadmewJhpppgdmdrb chest pain (2 sources)Chest pain; Translations: [Chest pain, unspecified]04-15-2076Irfioeph Other and unspecified benign neoplasm (1 source)Polyp of colon; Translations: [Polyp of colon]18-16-2292RhvyilrlCrfob nutritional; endocrine; and metabolic disorders (3 sources)Obesity; Translations: [Obesity, unspecified]01-00-4696KlrmwwaBawhb nutritional; endocrine; and metabolic disorders (1 source)Obesity, unspecified; Translations: [Obesity, unspecified]11-14-2023 ChronicOther screening for suspected conditions (not mental disorders or infectious disease) (3 sources)Encounter for screening for malignant neoplasm of colon; Translations: [Special screening for malignant neoplasms of colon]Onset: 692551-79-8188GdexxzdwJnqvebwp codes; unclassified (2 sources)Family history of malignant neoplasm of pancreas; Translations: [Family history of malignant neoplasm of digestive organs]97-35-3862Rxpszktu Comment on above:Genetic testing completed and negative - 03/2024Substance- related disorders (4 sources)Nicotine dependence; Translations: [Nicotine dependence, unspecified, uncomplicated]85-56-5769Cwwnifh Past or Other Problems Problem ClassificationProblemDateDocumented DateEpisodic/ChronicResidual codes; unclassified (1 source)Past history of procedure; Translations: [Other specified postprocedural states]Onset: 043810-94-7775ChguhdlnCzrzyjs on above: esophagitisResidual codes; unclassified (1 source)History of colonoscopy; Translations: [Other specified postprocedural states]Onset: 321952-82-5372DykrjlrvPijcunv on above:12/2023 polypectomy (repeat 5 years) Results Test NameValueInterpretationReference RangeFacilityTelephoneon 12-26-2024 [id number] Mendoza Pratt 1975 M Date Provider Department Center 12/26/2024 [facility] No family history on fileNormalUniversity of [facility] Clear LakePathology Request for Lab Corpon 30-09-6031Jsfaswvje Request for Lab CorpSarasota Memorial Hospital - Venice Physician GroupComment on above:Order Comment: PATHOLOGY GI SPECIMEN Result Comment: See report. Scanned copy available in EMR. PERFORMED BY: [facility] [address] [place] [address] PATHOLOGIST LAW OFFICE RECEPTIONIST KARINE MCCLOUD M.D.Performed By: #### PATH TO [facility] #### [place] [address] USABasophils Auto (Bld) [#/Vol]on 71-09-7014Vydrblpwc (Bld) [#/Vol]0.0 10 3/uL0.0-0.1FMercy Memorial HospitalBasophils/100 WBC Auto (Bld)on 53-13-6261Bxtwarold/100 WBC (Bld)0.6 %0.2-2.0Cleveland ClinicCholesterol in LDL Calc [Mass/Vol]on 11-84-6813Gkfghrfegnq in LDL [Mass/Vol]164.0 mg/dLCleveland ClinicComment on above:<100 mg/dl XZVPSHK091-300 mg/dl NEAR OR ABOVE MRMMMHS850-349 mg/dl BORDERLINE FGDN078-374 mg/dl HIGH>190 mg/dl VERY HIGHCholesterol in VLDL Calc [Mass/Vol]on 70-77-8296Nylucfhxrpr in VLDL [Mass/Vol]20.0 mg/dLCleveland ClinicEosinophils/100 WBC Auto (Bld)on 01-70-9117Vteijswwdmw/100 WBC (Bld)3.6 % 0.9-7.0Cleveland ClinicErythrocyte distribution width Auto (RBC) [Ratio]on 26-38-8752Aonjanceinn distribution width (RBC) [Ratio]11.8 % 11.0-15.0Cleveland ClinicEstimated glomerular filtration rate (GFR) non- Americanon 77-53-6834RNO/1.73 sq M.predicted among non-blacks MDRD (S/P/Bld) [Vol rate/Area]mL/min/{1.73_m2}>=60Cleveland ClinicGlobulin Calc (S) [Mass/Vol]on 15-26-5467Owdrolwt (S) [Mass/Vol]3.3 g/dL Cleveland ClinicHematocrit Auto (Bld) [Volume fraction]on 90-81-4248Nhffdckkqu (Bld) [Volume fraction]46.6 %42.0-54.0Cleveland ClinicHemoglobin [Mass/volume] in Bloodon 39-67-3994Twngrwbxct (Bld) [Mass/Vol]16.0 g/dL14.0-18.0[facility] ClinicLaboratory - Chemistry and Chemistry - challengeon 52-19-0522Sdoitnd [Mass/Vol]3.9 g/dL 3.4-5.0C[facility] ClinicALP [Catalytic activity/Vol]71 U/L46-116 [facility] ClinicALT [Catalytic activity/Vol]35 U/L16-63 [facility] ClinicAST [Catalytic activity/Vol]24 U/L15-37 Cleveland ClinicBilirubin [Mass/Vol]1.1 mg/dLHigh0.2-1.0 Cleveland ClinicCalcium [Mass/Vol]9.0 mg/dL8.5-10.1FMercy Memorial HospitalChloride [Moles/Vol]103 mmol/S58-717BgwhzhpypCleveland ClinicCholesterol [Mass/Vol]235 mg/dLHigh<=200Cleveland ClinicCholesterol in HDL [Mass/Vol]51 mg/bX01-92IajqegtabCleveland ClinicComment on above:> or =60 mg/dl - LOW CARDIOVASCULAR RISK<40 mg/dl - HIGH CARDIOVASCULAR RISKCO2 [Moles/Vol]28.4 mmol/L21.0-32.0Cleveland ClinicCreatinine [Mass/Vol]0.95 mg/dL0.70-1.30[facility] GFR/1.73 sq M.predicted MDRD (S/P/Bld) [Vol rate/Area]mL/min/{1.73_m2}>=60 Cleveland ClinicGlucose [Mass/Vol]105 mg/fH49-109NgoyzbrrxCleveland ClinicPotassium [Moles/Vol]4.4 mmol/L3.5-5.1Fire[facility] Medical CenterProtein [Mass/Vol]7.2 g/dL6.4-8.2FMercy Memorial Hospital Sodium [Moles/Vol]139 mmol/G708-472TwsliigduCleveland ClinicTriglyceride [Mass/Vol]100 mg/dL<=150Cleveland ClinicUrea nitrogen [Mass/Vol]19.0 mg/dLHigh7.0-18.0Cleveland ClinicUrea nitrogen/Creatinine [Mass ratio]20.0 mg/mgCleveland Clinic Laboratory - Hematology and Cell countson 76-02-5265Ivyiuycw granulocytes/100 WBC (Bld)0.4 %0.0-0.5FMercy Memorial HospitalLeukocytes [#/volume] corrected for nucleated erythrocytes in Blood by Automated counon 91-91-9029LWO corrected for nucl RBC Auto (Bld) [#/Vol]5.3 10 3/uL4.0-11.0Cleveland ClinicLymphocytes Auto (Bld) [#/Vol]on 47-27-6614Groofensyeo (Bld) [#/Vol]1.5 10 3/uL1.2-3.8Cleveland ClinicLymphocytes/100 WBC Auto (Bld)on 67-57-1926Whwgrwjdcxe/100 WBC (Bld)27.8 %20.5-60.0Cleveland ClinicMCH Auto (RBC) [Entitic mass]on 76-87-6937FNS (RBC) [Entitic mass]31.6 pg25.9-34.0Cleveland ClinicMCHC Auto (RBC) [Mass/Vol]on 93-19-1518QARS (RBC) [Mass/Vol]34.3 g/dL29.9-35.2FMercy Memorial HospitalMCV Auto (RBC) [Entitic vol]on 54-10-2425ABM (RBC) [Entitic vol] 91.9 fL80.0-94.0Cleveland ClinicMonocytes Auto (Bld) [#/Vol]on 90-96-1784Mdhiwzxek (Bld) [#/Vol]0.7 10 3/uL0.3-0.8Cleveland ClinicMonocytes/100 WBC Auto (Bld)on 98-13-4132Flygaiqwb/100 WBC (Bld)13.7 %High 1.7-12.0Cleveland ClinicNeutrophils Auto (Bld) [#/Vol]on 87-12-9972Zxqkmbjmnrb (Bld) [#/Vol]2.8 10 3/uL1.4-6.5FMercy Memorial HospitalNeutrophils/100 WBC Auto (Bld)on 60-84-4121Ofpktzncewp/100 WBC (Bld)53.9 % 43.0-75.0Cleveland ClinicNo Panel Informationon 11-17-2023 Eosinophils # (Auto)0.2 10 3/uL0.0-0.7FMercy Memorial HospitalImmature Granulocyte # (Auto)0.02 10 3/uL0.00-0.03[facility] Prostate Specific Antigen Screen0.95 ng/mL<=4.00Cleveland ClinicPlatelet mean volume Auto (Bld) [Entitic vol]on 05-90-9358Ycnldlbl mean volume (Bld) [Entitic vol]10.3 fL9.5-13.5FMercy Memorial Hospital Platelets Auto (Bld) [#/Vol]on 47-06-2450Aahhiwuey (Bld) [#/Vol]226 10 3/uL 150-450Cleveland ClinicRBC Auto (Bld) [#/Vol]on 85-92-0226XIC (Bld) [#/Vol]5.07 10 6/uL4.70-6.10[facility] Anne Hospitalerum or plasma albumin/globulin mass ratioon 32-29-8694Enlnjhh/Globulin [Mass ratio]1.2 {ratio}[facility] Anne Hospitalerum or plasma anion gap determination on 91-53-6667Vqgid gap [Moles/Vol]12.0 mmol/LFMercy Memorial Hospital Serum or plasma total cholesterol/high density lipoprotein (HDL) cholesterol mass philip 25-10-0952Womhijuahlf.total/Cholesterol in HDL [Mass ratio]4.6 {ratio}C[facility] ClinicComment on above:3.3 - 4.4 LOW RISK4.4 - 7.1 AVERAGE RISK7.1 - 11.0 MODERATE RISK>11.0 HIGH RISK Vital Signs Date TimeVital SignValuePerforming TcaucpjppFdpmhwto83-84-5608 08:55-0400Body vjxpuw765.07 cmCleveland Clinic03-20-2025 08:55-0400Body mass index (BMI) [Ratio]36.3 kg/y0AmikqpiltCleveland Clinic03-20-2025 08:55-0400Body fdnewi555.4 [facility]03-20-2025 08:55-0400Diastolic blood ujzkdqfc52 mm[Hg][facility] 06-26-2024 08:55-0400Systolic blood fatdkavv644 mm[Hg][facility]12-20-2024 09:09-0500Body mivczo576.07 cmC[facility] Clinic12-20-2024 09:09-0500Body mass index (BMI) [Ratio]36.2 kg/y9OxkagjikrCleveland Clinic12-20-2024 09:09-0500Body jmgowb272.11 [facility]12-20-2024 09:09-0500Diastolic blood aqbozqdg17 mm[Hg] [facility]12-20-2024 09:09-0500Heart rate59 /minCleveland Clinic12-20-2024 09:09-0500Systolic blood mgczodcm645 mm[Hg] [facility]09-30-2024 11:44-0400Diastolic blood cvfucclm33 mm[Hg]DO Jaison Ball Work Phone: [facility]09-30-2024 11:44-0400 Heart rate63 /minDO Jaison Ball Work Phone: [facility]09-30-2024 11:44-0400 Respiratory rate16 /minDO Jaison Ball Work Phone: [facility]09-30-2024 11:44-0400 SaO2% (BldA) [Mass fraction]99 %DO Jaison Ball Work Phone: [facility]09-30-2024 11:44-0400 Systolic blood gvbivvwe122 mm[Hg]DO Jaison Cantor Work Phone: [facility]09-30-2024 10:41-0400 Body snsezi447.07 cmDO Jaison Cantor Work Phone: [facility]09-30-2024 10:41-0400 Body vellfo247.3 kgDO Jaison Cantor Work Phone: [facility]08-07-2024 15:08-0400 Body mvfdom321.07 cmC[facility] Clinic08-07-2024 15:08-0400Body mass index (BMI) [Ratio]35.8 kg/n9NdnqngwqvCleveland Clinic08-07-2024 15:08-0400Body gaihre538.92 kgC[facility] Clinic08-07-2024 15:08-0400Diastolic blood odgmxmwg76 mm[Hg][facility] 11-14-2023 15:08-0400Heart rate74 /[facility] 11-14-2023 15:08-0400Respiratory rate12 /[facility] 11-14-2023 15:08-0400Systolic blood toxkbkjj802 mm[Hg][facility] Encounters Encounter DateEncounter TypeCare ProviderFacilityStart: 06-26-2024 End: 77-49-1145mttusoujrjTczhrwcqcSelect [facility] Work Phone: Start: 06-26-2024 End: 85-85-0314Twhjjae encounter procedureC[facility] Work Phone: Start: 06-19-2024 End: 01-78-5077ipnpnvfvxwWfxs T AMESFacility:[facility] Start: 03-28-2024 End: 39-32-0888Pmfkcbi encounter procedureC[facility] Work Phone: Start: 03-11-2024 End: 83-64-1023rkwfnowbknZahokkf J DittyFacility:[facility] Hospitaltart: 71-52-3072Guf-patient / Non-visitDO Jaison Cantor Work Phone: [facility] Gastroenterology Work Phone: Start: 01-07-2024 End: 87-00-0227Dmbcfsppx to same day surgery centerDO Jaison Cantor Work Phone: [facility] Work Phone: Start: 01-07-2024 End: 13-14-3230srbmvucpgbNU Jaison iTMan Work Phone: [facility] Work Phone: Start: 62-33-3847Pbt-patient / Non-visitDO Jaison Cantor Work Phone: [facility] Work Phone: Start: 11-14-2023 End: 81-12-1562qposizctfnVfcpatsymSelect Medical [facility] Work Phone: Start: 11-14-2023 End: 80-23-2375Dqpyagbba for general adult medical examination without abnormal findingsMercy Health St. Anne Hospitaltart: 11-14-2023 End: 10-30-2342Kbosilq encounter procedureC[facility] Health [facility] Physician GroupD[facility] Work Phone: Start: 47-05-4201Gfwgkfg encounter procedureBENJABJ CANTORFacility:H1 Procedures DateProcedureProcedure DetailPerforming ClinicianStart: 01-07-2024 EsophagogastroduodenoscopyDO Jaison Cantor Work Phone: Plan of Treatment DateCare ActivityDetailAuthorStart: 34-28-6107DyegvuazwCleveland Clinic Start: 56-53-1033Lhrtxel referralBarnesville Hospital Work Phone: Comprehensive metabolic 2000 panel - Serum or Plasma [facility] ClinicPatient EducationColon polyps Esophagitis Know your MedVeterans Health Administration Work Phone: Patient referralBarnesville Hospital Work Phone: [facility] Payers DatePayer CategoryPayerPolicy [id number] Malkaetter [id number] Social History DateTypeDetailFacilityStart: 73-53-4949Zkirecx smoking status NHISNever smoked tobacco (finding)[facility] Hospitaltart: 52-47-3854Jis Assigned At BirthMalSelect Medical Specialty Hospital - Akrontart: 88-36-0352Sctxkhl smoking status NHISEx-smoker (finding)[facility] Hospitaltart: 02-29-2024 Tobacco smoking status NHISUnknown if ever smokedMercy Health St. Anne Hospitaltart: 75-20-6768XzmDuao (finding)[facility] Goals DatePatient GoalDesired Activity/State Clinical Note 12-26-2024 Note Date & IbghUnyaYooqojam92-38-3634 Note01/01/25@9840 Message left for patient regarding scheduling of his procedures. Also, called Dr. Marie's office to see if recent office note is available. My direct phone # of [phone] left for a return call. 12/26/24@1587 Message left for patient to call and schedule an EGD/EUS with Dr. Sg Soler, see GI referral in media tab dated 12/23/[address] Marie. [facility] Evaluation note 03-28-2024 Note Date & FwzgLwkgKulemaeb25-72-4138 Evaluation note* Diagnosis Onset Date Resolution Status Admit Date Esophagitis acuteDecember 2023 9:06amGERD (gastroesophageal reflux disease)acute March 28, 2024 9:06amChest painacuteMarch 2024 8:53amGERD (gastroesophageal reflux disease)acuteMar2024 8:53am [facility] Work Phone: Procedure note 01-07-2024 Note Date & JwfcCyulOgbvzmbd85-14-6852 Procedure noteCleveland Clinic Evaluation note Note Date & TypeNoteFacilityEvaluation note* Diagnosis Onset Date Resolution Status GERD (gastroesophageal reflux disease) acuteScreening for colon cancernoneactiveWellness examinationnonEast [facility] Work Phone: Evaluation note Note Date & TypeNoteFacilityEvaluation note* Diagnosis Onset Date Resolution Status GERD (gastroesophageal reflux disease) acuteNicotine addictionacuteObesityacuteScreening for colon cancernoneactive Wellness examinationUniversity Hospitals [facility] Work Phone: History and physical note Note Date & TypeNoteFacilityHistory and physical note Author Jonathon Redd [facility] January 07, 2024 10:51amNote Date/TimeSeptember 2023 10:52[place] [address] Gastroenterology H&P Signed Patient: Mendoza Pratt MR#: [id number] : 1975 Acct:[id number] Age/Sex: 48 / M Adm Date: 4 Loc: Room: Type: [facility] Attending Dr: Jonathon Redd MD Copies to: DO Jonathon Acosta MD~ Date of Service: 01/07/2024 HISTORY & PHYSICAL: Patient's history with special attention to the cardiovascular, pulmonary systems and the current problem was reviewed with the patient immediately prior to the procedure. Present medications and doses reviewed in the EMR. Allergies and pertinent laboratory tests were also re viewedat this time in the EMR. The physical [...] signed by Jonathon Redd MD> 01/07/24 1051 [facility] Work Phone: Hospital Discharge instructions Note Date & TypeNoteFacilityHospital Discharge instructionsAmbulatory Orders* Referral to Gastroenterology Location: None Selected [facility] Work Phone: Summary Purpose Family History No Family History Records Found Relationship Condition Age at Onset Recorded Date/T fawad mother Malignant neoplasm of pancreas Unknown fatherHeart diseaseUnknown Advance Directives No Advanced Directives Records Found Advance Directive Response Recorded Date/ Time Advance Directives No November 13, 2 024 3:00pm Chief Complaint and Reason for Visit Chief Complaint well Reason for Visit GERD (gastroesophage al reflux disease) Screening for colon cancer Wellness examination Chief Complaint well Screening, GERD, epigastric abdominal pain Screening, GERD, epigastric abdominal painReason for VisitGERD (gastroesophageal reflux disease) Nicotine addiction Obesity Screening for colon cancer Wellness examination Chief Complaint Admit Date follow up scopes March 28, 2024 9:06am 3 month follow up June 26, 2024 8:5 3am Reason for Visit Admit Date Esophagitis March 28, 2024 9:06am GERD (gastroesophageal reflux disease) D ecember 2023 9:06am Chest pain June 26, 2024 8:5 3am GERD (gastroesophageal reflux disease) M arch 2024 8:53am Additional Source Comments (unrecognized sect ion and content) No Status Records FoundNo Status Records FoundNo Status Records FoundNo Status Records Found INFORMATION SOURCE (unrecogn ized section and content) DATE CREATED AUTHOR 05/03/2020 [facility] DATE CREATED AUTHOR AUTHOR'S ORGANIZ ATION 03/21/2024 [facility] DATE CREATED AUTHOR AUTHOR'S ORGANIZ ATION 06/22/2024 [facility] DATE CREATED AUTHOR AUTHOR'S ORGANIZ ATION 01/08/2025 [facility] Care Teams (unrecognized sec tion and content) [...] Active Start: January 07, 2024 End: January 06Linda Jon ProviderActiveStart: January 07, 2024 End: January 07, 2024 Team Status: Active Member Role Status Dates Jaison Cantor DO Primary Care Provider Active Start: January 07, 2024 Linda Hagan Provider, Other ProviderActiveStart: January 07, 2024 Team Status: Inactive Member Role Status Dates Jaison Cantor DO Primary Care Provider Active Start: March 28, 2024 End: March 28Amadou Vargas ProviderActiveStart: March 28, 2024 End: March 28, 2024 Team Status: Inactive Member Role Status Dates Jaison Cantor DO Primary Care Provider Active Start: June 26, 2024 End: June 26, 2024Amadou Cardona ProviderActiveStart: June 26, 2024 End: June 26, 2024 Goals (unrecognized section and content) Goals may be documented in a n alternate sectionGoals may be documented in an alternate section FOR RECORDS PERTAINING TO PATIENTS [...] BE BASED ON THE PRIMARY CLINICAL RECORDS. [employer] [facility]. provides no warranty or guarantee of the accuracy or completeness of information in this document.
== END 2025-02-12 07:00 | disposition home or self-care (01) ==
LOC: US 06:59
PROVIDERS: PCP Internal Medicine; Visit Provider Internal Medicine Hematology & Oncology
DX: K76.0 Fatty (change of) liver, not elsewhere classified (principal); Z80.0 Family history of malignant neoplasm of digestive organs; Z84.81 Family history of carrier of genetic disease
CPT/HCPCS: 76705